=== PATIENT | male | born 1995 | race Caucasian/White ===

== ENCOUNTER → 2017-06-23 | Outpatient (CLI) | payer OTHER | END | disposition home or self-care (01) | LOC: KCIC MRI 15:30 | DX: S99.911D Unspecified injury of right ankle, subsequent encounter (principal); S99.911A Unspecified injury of right ankle, initial encounter (principal); Y93.66 Activity, soccer; X58.XXXD Exposure to other specified factors, subsequent encounter; Y93.89 Activity, other specified; Y92.89 Other specified places as the place of occurrence of the external cause; Y99.8 Other external cause status | CPT/HCPCS: 73721 ==